=== PATIENT | male | born 1990 | race Caucasian/White ===

== ENCOUNTER 2017-10-21 14:43 | Emergency (ER) | payer SELFPAY ==
[2017-10-21 16:26] VITALS: BP 108/61
== END 2017-10-21 17:16 | disposition left against medical advice (07) ==
LOC: ED 14:43
DX: R10.84 Generalized abdominal pain (principal); Z53.21 Procedure and treatment not carried out due to patient leaving prior to being seen by health care provider

== ENCOUNTER 2017-10-24 02:41 | Emergency (ER) | payer SELFPAY ==
[2017-10-24 04:06] LABS: ABS Basophils 0.1 10^3/ul (0-0.2); ABS Eosinophils 0.1 10^3/ul (0-0.6); ABS Lymphocytes 1.7 10^3/ul (1.0-4.8); ABS Monocytes 0.5 10^3/ul (0-0.8); ABS Neutrophils 2.6 10^3/ul (1.5-7.7); ABS Nucleated RBC 0 10^3/ul; Eosinophil % 2.9 % (0-6); Hematocrit 42 % (42-52); Hemoglobin 14.4 g/dl (14.0-18.0); Lymphocyte % 33.8 % (25-47); Mean Corpuscular HGB Conc 34 g/dl (31-36); Mean Corpuscular Hemoglobin 31 pg (27-31); Mean Corpuscular Volume 91 fL (80-94); Nucleated Red Blood Cells % 0.1; Platelet Count 153 10^3/ul (150-450); Red Blood Count 4.65 10^6/ul (4.0-5.4); Red Cell Distribution Width 13 % (10.5-15); White Blood Count 5.1 10^3/ul (3.5-10.8)
[2017-10-24 04:22] LABS: EGFR Non-African American 97.4 (>60)
[2017-10-24] MEDS ORDERED: Ketorolac INJ* 60 MG/2 ML VIAL IM ONE (07:26)
[2017-10-24] MEDS ORDERED: NS 0.9% 1000 ML* 1,000 ML IV ONE (08:36)
[2017-10-24 09:18] LABS: Urine Appearance Clear; Urine Blood Negative (Negative); Urine Color Yellow; Urine Ketones Negative (Negative); Urine Protein Negative (Negative); Urine Specific Gravity 1.025 (1.010-1.030); Urine Urobilinogen Negative (Negative)
--- NOTE | 2017-10-24 09:29 | RAD ---
Indication: Left flank pain, upper quadrant pain. CT of the abdomen and pelvis was performed without oral or IV contrast. Coronal and sagittal reconstructed images were obtained. The lung bases demonstrate no pleural fluid, nodules or masses. Heart is of normal size without evidence of pericardial effusion. Liver is normal in size. No focal lesions or intrahepatic ductal dilatation is noted. The gallbladder is partially contracted. The spleen is normal in size. No adrenal lesions are noted. The kidneys demonstrate no hydronephrosis. No asymmetry of size is noted. Aorta and inferior vena cava are unremarkable. No retroperitoneal lymphadenopathy is noted. CT of the pelvis demonstrates no retroperitoneal or pelvic lymphadenopathy. There is contrast or calcification in the appendix but does not appear to be dilated. The urinary bladder is unremarkable. The prostate and seminal vesicles are unremarkable. No hernias are noted. The colon is filled with stool. IMPRESSION: No evidence of obstructive uropathy is noted. Colon is filled with stool. No dilated loops of bowel are noted. Appendix is normal caliber with high density material which may represent contrast calcifications. The spleen is not enlarged with no evidence of perisplenic fluid.
--- NOTE | 2017-10-24 10:17 | RAD ---
Indication: Chest pain. 2 views of the chest including dual energy PA views demonstrates no mediastinal shift. Heart is of normal size and configuration. Lung jimenez appear clear. IMPRESSION: No active cardiopulmonary disease is noted.
[2017-10-24] MEDS ORDERED: Omeprazole CAP* 20 MG PO ONE (10:57)
--- NOTE | 2017-10-24 11:04 | ED ---
Josh Liu Jennifer, scribed for Earnest Mata MD on 10/24/17 at 0833 . Progress - Progress Note Progress Note: The patient is a sign out from Dr. Champion pending troponin levels. The patient is a 26 year old male who presents with LUQ abdominal pain and left flank pain for one week. The patient reports the pain worsens with deep breaths , movement, twisting and turning, and eating. He denies fevers, chills, shortness of breath, sputum production, and issues with urinating or bowel movement. Recently, he was told he had a UTI but didn't have insurance so he did not receive a course of antibiotic treatment. EKG at 07:43. Sinus bradycardia at @ [address] elevation probably normal early repolarization pattern. No ectopy. No significant change from EKG today at 03:42 , 10/24/2017. CT Abd/Pel. Interpreted by a radiologist. IMPRESSION: No evidence of obstructive uropathy is noted. Colon is filled with stool. No dilated loops of bowel are noted. Appendix is normal caliber with high density material which may represent contrast calcifications. The spleen is not enlarged with no evidence of perisplenic fluid. Dr. Mata has reviewed this report. CXR. Interpreted by a radiologist. IMPRESSION: No active cardiopulmonary disease. Dr. Mata has reviewed this report. Course/Dx - Course Course Of Treatment: DISCUSSED RESULTS WITH THE PATIENT. HE RELATES WORSENING GERD AND HAS BEEN TAKING IBUPROFEN FOR THE PAIN. DISCUSSED STOPPING THE IBUPROFEN AND TREATING THE GERD. F/U PMD; RETURN IF WORSE. Discharge - Sign-Out/Discharge Documenting (check all that apply): Discharge - Discharge Plan Condition: Stable Disposition: HOME Prescriptions: Albuterol HFA INHALER* [Ventolin HFA Inhaler*] 2 puff INH Q4H PRN #1 mdi PRN Reason: Wheezing Omeprazole CAP* [Prilosec CAP* 20 MG] 20 mg PO BID #30 cap. Sucralfate TAB* [Carafate*] 1 gm PO QID #60 tab Patient Education Materials: Asthma (ED), Gastroesophageal Reflux Disease (ED) , Acute Abdominal Pain (ED) Referrals: [facility] [place] [facility]ERR[facility] [Outside] Additional Instructions: FOLLOW UP WITH YOUR DOCTOR. STOP TAKING IBUPROFEN IT MAY BE WORSENING YOUR GERD. RETURN TO THE EMERGENCY DEPARTMENT FOR ANY WORSENING OF YOUR CONDITION; PAIN, FEVER, SHORTNESS OF BREATH, BLOOD IN YOU STOOL OR EMESIS OR QUESTIONS OR CONCERNS. - Billing Disposition and Condition Condition: STABLE Disposition: HOME The documentation as recorded by the Josh mims Jennifer accurately reflects the service I personally performed and the decisions made by me, Earnest Mata MD.
[2017-10-24 11:07] VITALS: BP 105/66
--- NOTE | 2017-10-24 22:16 | ED ---
Ludmila Liu Nilda, scribed for Prosper Champion MD on 10/24/17 at 0334 . Abdominal Pain/Male - HPI Summary HPI Summary: This patient is a 26 year old M presenting to [facility] with a chief complaint of constant non-radiating LUQ pain under left ribs for approximately 1 week. The patient rates the pain 8/10 in severity. Symptoms aggravated by exertion, movement, and deep inspiration. Symptoms alleviated by nothing. Patient reports cough and right ear pain. Patient denies recent travel. Pt states he smokes 1 pack cigarettes every 3 days. Pt admits to using marijuana (last used yesterday) . No PMHx DM, HLD, HTN, DVT, and PE. Pt states father had NH at 41 y/o. - History of Current Complaint Chief Complaint: EDAbdPain Stated Complaint: ABD PAIN Time Seen by Provider: 10/24/17 03:13 Hx Obtained From: Patient Onset/Duration: Sudden Onset, Lasting Weeks, Still Present Timing: Constant Severity Currently: Severe Pain Intensity: 8 Pain Scale Used: 0-10 Numeric Location: Discrete At: LUQ Radiates: No Aggravating Factor(s): Movement, Deep Breaths, Other: - exertion Alleviating Factor(s): Nothing Associated Signs And Symptoms: Positive: Other - cough, right ear pain - Allergies/Home Medications Allergies/Adverse Reactions: Allergies Allergy/AdvReac Type Severity Reaction Status Date / Time No Known Allergies Allergy Verified 10/24/17 03:31 Home Medications: Home Medications Albuterol HFA INHALER* 1 inh INH Q4HR PRN 10/24/17 [History Confirmed 10/24/17] PMH/Surg Hx/FS Hx/Imm Hx Endocrine/Hematology History: Denies: Hx Diabetes Cardiovascular History: Denies: Hx Deep Vein Thrombosis, Hx Hypercholesterolemia, Hx Hypertension Respiratory History: Denies: Hx Pulmonary Embolism Infectious Disease History: No Infectious Disease History: Denies: Traveled Outside the [place] in Last 30 Days - Family History Known Family History: Positive: Cardiac Disease - [place] father at 41 y/o - Social History Occupation: Employed Full-time Alcohol Use: None Hx Substance Use: Yes Substance Use Type: Reports: Marijuana Smoking Status (MU): Current Every Day Smoker Review of Systems Positive: Ear Ache - right Positive: Cough Positive: Abdominal Pain - LUQ All Other Systems Reviewed And Are Negative: Yes Physical Exam - Summary Physical Exam Summary: GENERAL: Patient is a well developed and nourished M who is lying comfortable in the stretcher. Patient is not in any acute respiratory distress. HEAD AND FACE: Normocephalic EYES: PERRLA, EOMI x 2. EARS: Hearing grossly intact. TMs clear bilat MOUTH: Oropharynx within normal limits. NECK: Supple, trachea is midline, no adenopathy, no JVD, no carotid bruit. CHEST: Symmetric, no tenderness at palpation LUNGS: Clear to auscultation bilaterally. No wheezing or crackles. CVS: Regular rate and rhythm, S1 and S2 present, no murmurs or gallops appreciated. ABDOMEN: Soft, non-tender. Bowel sounds are normal. No abdominal abnormal pulsations. EXTREMITIES: Full ROM in all major joints, no edema, no cyanosis or clubbing. NEURO: Alert and oriented x 3. No acute neurological deficits. Speech is normal and follows commands. SKIN: Dry and warm Triage Information Reviewed: Yes Vital Signs On Initial Exam: Initial Vitals Temp Pulse Resp BP Pulse Ox 98.3 F 73 16 119/77 96 10/24/17 02:43 10/24/17 02:43 10/24/17 02:43 10/24/17 02:43 10/24/17 02:43 Vital Signs Reviewed: Yes Diagnostics - Vital Signs Vital Signs Temp Pulse Resp BP Pulse Ox 10/24/17 02:43 98.3 F 73 16 119/77 96 - Laboratory Lab Results: Lab Results 10/24/17 10/24/17 10/24/17 Range/Units 03:55 03:55 03:55 WBC 5.1 (3.5-10.8) 10^3/ul RBC 4.65 (4.0-5.4) 10^6/ul Hgb 14.4 (14.0-18.0) g/dl Hct 42 (42-52) % MCV 91 (80-94) fL MCH 31 (27-31) pg MCHC 34 (31-36) g/dl RDW 13 (10.5-15) % Plt Count 153 (150-450) 10^3/ul MPV 10.0 (7.4-10.4) um3 Neut % (Auto) 51.7 (38-83) % Lymph % (Auto) 33.8 (25-47) % [place]ham % (Auto) 10.5 H (0-7) % Eos % (Auto) 2.9 (0-6) % Baso % (Auto) 1.1 (0-2) % Absolute Neuts (auto) 2.6 (1.5-7.7) 10^3/ul Absolute Lymphs (auto) 1.7 (1.0-4.8) 10^3/ul Absolute Monos (auto) 0.5 (0-0.8) 10^3/ul Absolute Eos (auto) 0.1 (0-0.6) 10^3/ul Absolute Basos (auto) 0.1 (0-0.2) 10^3/ul Absolute Nucleated RBC 0 10^3/ul Nucleated RBC % 0.1 D-Dimer, Quantitative < 200 (Less Than 230) ng/mL Sodium 137 L (139-145) mmol/L Potassium 3.4 L (3.5-5.0) mmol/L Chloride 104 (101-111) mmol/L Carbon Dioxide 27 (22-32) mmol/L Anion Gap 6 (2-11) mmol/L BUN 18 (6-24) mg/dL Creatinine 0.95 (0.67-1.17) mg/dL Est GFR ( Amer) 125.3 (>60) Est GFR (Non-Af Amer) 97.4 (>60) BUN/Creatinine Ratio 18.9 (8-20) Glucose 110 H (70-100) mg/dL Calcium 9.3 (8.6-10.3) mg/dL Total Bilirubin 0.30 (0.2-1.0) mg/dL AST 20 (13-39) U/L ALT 21 (7-52) U/L Alkaline Phosphatase 64 (34-104) U/L Troponin I 0.00 (<0.04) ng/mL Total Protein 6.5 (6.4-8.9) g/dL Albumin 4.1 (3.2-5.2) g/dL Globulin 2.4 (2-4) g/dL Albumin/Globulin Ratio 1.7 (1-3) Lipase (11.0-82.0) U/L Urine Color Urine Appearance Urine pH (5-9) Ur Specific Hardy (1.010-1.030) Urine Protein (Negative) Urine Ketones (Negative) Urine Blood (Negative) Urine Nitrate (Negative) Urine Bilirubin (Negative) Urine Urobilinogen (Negative) Ur Leukocyte Esterase (Negative) Urine Glucose (Negative) 10/24/17 10/24/17 Range/Units 08:26 09:07 WBC (3.5-10.8) 10^3/ul RBC (4.0-5.4) 10^6/ul Hgb (14.0-18.0) g/dl Hct (42-52) % MCV (80-94) fL MCH (27-31) pg MCHC (31-36) g/dl RDW (10.5-15) % Plt Count (150-450) 10^3/ul MPV (7.4-10.4) um3 Neut % (Auto) (38-83) % Lymph % (Auto) (25-47) % Oldham % (Auto) (0-7) % Eos % (Auto) (0-6) % Baso % (Auto) (0-2) % Absolute Neuts (auto) (1.5-7.7) 10^3/ul Absolute Lymphs (auto) (1.0-4.8) 10^3/ul Absolute Monos (auto) (0-0.8) 10^3/ul Absolute Eos (auto) (0-0.6) 10^3/ul Absolute Basos (auto) (0-0.2) 10^3/ul Absolute Nucleated RBC 10^3/ul Nucleated RBC % D-Dimer, Quantitative (Less Than 230) ng/mL Sodium (139-145) mmol/L Potassium (3.5-5.0) mmol/L Chloride (101-111) mmol/L Carbon Dioxide (22-32) mmol/L Anion Gap (2-11) mmol/L BUN (6-24) mg/dL Creatinine (0.67-1.17) mg/dL Est GFR ( Amer) (>60) Est GFR (Non-Af Amer) (>60) BUN/Creatinine Ratio (8-20) Glucose (70-100) mg/dL Calcium (8.6-10.3) mg/dL Total Bilirubin (0.2-1.0) mg/dL AST (13-39) U/L ALT (7-52) U/L Alkaline Phosphatase (34-104) U/L Troponin I 0.00 (<0.04) ng/mL Total Protein (6.4-8.9) g/dL Albumin (3.2-5.2) g/dL Globulin (2-4) g/dL Albumin/Globulin Ratio (1-3) Lipase 27 (11.0-82.0) U/L Urine Color Yellow Urine Appearance Clear Urine pH 6.0 (5-9) Ur Specific Hardy 1.025 (1.010-1.030) Urine Protein Negative (Negative) Urine Ketones Negative (Negative) Urine Blood Negative (Negative) Urine Nitrate Negative (Negative) Urine Bilirubin Negative (Negative) Urine Urobilinogen Negative (Negative) Ur Leukocyte Esterase Negative (Negative) Urine Glucose Negative (Negative) Result Diagrams: 10/24/17 03:55 10/24/17 03:55 Lab Statement: Any lab studies that have been ordered have been reviewed, and results considered in the medical decision making process. - Radiology CXR Radiology Interpretation Completed By: ED Physician - No PNA. - EKG 0440 Cardiac Rate: Bradycardia - 59 bpm EKG Rhythm: Sinus Bradycardia EKG Interpretation: minimal ST elevation, benign early repolarization Re-Evaluation - Re-Evaluation First Eval Re-Evaluation Time: 07:23 Comment: Reviewed results and imaging with pt. Abdominal Pain Fem Course/Dx - Diagnoses Provider Diagnoses: Rib pain on left side Discharge - Sign-Out/Discharge Documenting (check all that apply): Sign-Out Patient Signing out patient TO: Earnest Mata - pending dispo, awaiting trop - Discharge Plan Condition: Stable Disposition: HOME Prescriptions: Albuterol HFA INHALER* [Ventolin HFA Inhaler*] 2 puff INH Q4H PRN #1 mdi PRN Reason: Wheezing Omeprazole CAP* [Prilosec CAP* 20 MG] 20 mg PO BID #30 cap. Sucralfate TAB* [Carafate*] 1 gm PO QID #60 tab Patient Education Materials: Asthma (ED), Gastroesophageal Reflux Disease (ED) , Acute Abdominal Pain (ED) Referrals: [facility] – [place] [facility] REFERRAL [Outside] Additional Instructions: FOLLOW UP WITH YOUR DOCTOR. STOP TAKING IBUPROFEN IT MAY BE WORSENING YOUR GERD. RETURN TO THE EMERGENCY DEPARTMENT FOR ANY WORSENING OF YOUR CONDITION; PAIN, FEVER, SHORTNESS OF BREATH, BLOOD IN YOU STOOL OR EMESIS OR QUESTIONS OR CONCERNS. The documentation as recorded by the Ludmila mims Nilda accurately reflects the service I personally performed and the decisions made by me, Prosper Champion MD.
== END 2017-10-24 11:13 | disposition home or self-care (01) ==
LOC: ED 02:41
DX: R07.81 Pleurodynia (principal); R00.1 Bradycardia, unspecified; R10.12 Left upper quadrant pain; R05 Cough; H92.01 Otalgia, right ear; F17.210 Nicotine dependence, cigarettes, uncomplicated
CPT/HCPCS: 36415; 71046; 74176; 80053; 81003; 83690; 84484; 85025; 85379; 93005; 96372; 99283; A9270-GY; J1885

== ENCOUNTER 2017-12-26 09:40 | Emergency (ER) | payer SELFPAY ==
[2017-12-26 09:49] VITALS: BP 103/66
--- NOTE | 2017-12-26 11:43 | UC ---
Jass Liu Rebecca, scribed for John Jones MD on 12/26/17 at 1007 . Throat Pain/Nasal Kenji HPI - HPI Summary HPI Summary: Pt is a 27 y/o M who presents to [facility] c/o bilateral ear pain with radiation down the throat for 1 week. On triage, pain is severe, ranked 8-9/10 and characterized as an ache. Yesterday, the pain was worse in the right ear and today it is worse in the left. Has been treating with Tylenol, Ibuprofen and Benadryl which alleviates sx temporarily, last taken at 0830. Sx aggravated by PO intake and swallowing. Additionally c/o CRUZ characterized as migraine, cervical lymphadenopathy and chills. Denies fever, CP, SOB, N/V, abdominal pain , constipation. Prior similar episodes 3 times this year. No sick contacts and no recent travel. PMHx [place]. - History of Current Complaint Chief Complaint: UCGeneralIllness Stated Complaint: EAR ACHE, AND SORE THROAT Time Seen by Provider: 12/26/17 09:53 Hx Obtained From: Patient Onset/Duration: Lasting Weeks - 1 week, Still Present Severity: Severe Pain Intensity: 9 Pain Scale Used: 0-10 Numeric Cough: None Associated Signs & Symptoms: Positive: Other - Bilateral ear pain. Negative: Fever Related History: Other (Noted In Comments) - Prior similar episodes - Allergies/Home Medications Allergies/Adverse Reactions: Allergies Allergy/AdvReac Type Severity Reaction Status Date / Time No Known Allergies Allergy Verified 12/26/17 09:49 PMH/Surg Hx/FS Hx/Imm Hx - Additional Past Medical History Additional PMH: PMHx: [place] Previously Healthy: Yes Endocrine History: Other Other Endocrine History: NEGATIVE: DM Cardiovascular History: Other Other Cardiovascular History: NEGATIVE: HTN Other Respiratory History: negative Other GI/ History: negative Other Neurological History: negative - Surgical History Surgical History: None - Family History Known Family History: Positive: Cardiac Disease - [place] father at 41 y/o - Social History Lives: With Family Alcohol Use: None Substance Use Type: Marijuana Substance Use Comment - Amount & Last Used: infrequently, smoked 4/20 Smoking Status (MU): Current Every Day Smoker Review of Systems Constitutional: Chills Skin: Negative Eyes: Negative ENT: Sore Throat, Ear Ache - Bilateral with radiation down throat, Other - Lymphadenopathy Respiratory: Negative Cardiovascular: Negative Gastrointestinal: Negative Genitourinary: Negative Motor: Negative Neurovascular: Negative Musculoskeletal: Negative Neurological: Headache - migraine Psychological: Negative Is Patient Immunocompromised?: No All Other Systems Reviewed And Are Negative: Yes - Comments Additional Review of Systems Comments: NEGATIVE: Fever, CP, SOB, N/V, abdominal pain, constipation Physical Exam Triage Information Reviewed: Yes Appearance: Ill-Appearing, Pain Distress Vital Signs: Initial Vital Signs Temp 98.5 F 12/26/17 09:43 Pulse 79 12/26/17 09:43 Resp 16 12/26/17 09:43 BP 103/66 12/26/17 09:43 Pulse Ox 99 12/26/17 09:43 Vital Signs Reviewed: Yes Eye Exam: Normal Eyes: Positive: Conjunctiva Clear ENT: Positive: Pharyngeal erythema, TM red - right TM red and bulging, Tonsillar swelling, Tonsillar exudate. Negative: Nasal drainage, Muffled voice , Hoarse voice Neck exam: Normal Neck: Positive: Supple, Other: - enlarged and tender anterior cervical lymphadenopathy. Negative: No Lymphadenopathy Respiratory Exam: Normal Respiratory: Positive: Chest non-tender, Lungs clear, Normal breath sounds, No respiratory distress. Negative: Crackles, Rhonchi, Stridor, Wheezing Cardiovascular Exam: Normal Cardiovascular: Positive: RRR, No Murmur, Pulses Normal Abdominal Exam: Normal Abdomen Description: Positive: Nontender, No Organomegaly, Soft Bowel Sounds: Positive: Present Musculoskeletal Exam: Normal Neurological Exam: Normal Neurological: Positive: Alert Psychological: Positive: Age Appropriate Behavior Skin Exam: Normal Skin: Negative: rashes Throat Pain/Nasal Course/Dx - Course Course Of Treatment: During the visit today, we obtained rapid strep test which was negative. . We discussed the findings or otitis media and further plan. I will prescribe the medication to the pharmacy . Advised him that if he has mono, he can develop a rash and needs to stop the amoxicillin. Obtained monospot test . Patient expressed understanding. I will prescribe the albuterol for his exercise induced asthma. - Differential Dx/Diagnosis Differential Diagnosis/HQI/PQRI: Mononucleosis, Pharyngitis, Sinusitis, Tonsillitis, URI Provider Diagnoses: Right otitis media and pharyngitis. Discharge - Sign-Out/Discharge Documenting (check all that apply): Discharge/Admit/Transfer - Discharge - Discharge Plan Condition: Stable Disposition: HOME Prescriptions: Albuterol HFA INHALER* [Ventolin HFA Inhaler*] 1 puff INH Q4H PRN #1 mdi PRN Reason: Shortness Of Breath Amoxicillin PO (*) [Amoxicillin 500 MG CAP*] 500 mg PO Q12H 10 Days #20 cap Patient Education Materials: Mononucleosis (ED), Pharyngitis (ED) Referrals: [facility] [place] [facility] REFERRAL [Outside] - 1 Week Additional Instructions: Start taking antibiotic. Stop if you develop a rash. It has been prescribed to the pharmacy. Your rapid strep test was negative today and mononucleosis test was done. Follow up with primary care doctor in 1 week. Return to Urgent care / ER if symptoms get worse. - Billing Disposition and Condition Condition: STABLE Disposition: Home The documentation as recorded by the Jass mims Rebecca accurately reflects the service I personally performed and the decisions made by me, John Jones MD.
== END 2017-12-26 11:16 | disposition home or self-care (01) ==
LOC: UCEAST 09:40
DX: H66.91 Otitis media, unspecified, right ear (principal); J02.9 Acute pharyngitis, unspecified; Z82.49 Family history of ischemic heart disease and other diseases of the circulatory system; F17.200 Nicotine dependence, unspecified, uncomplicated
CPT/HCPCS: 87651; 99212; G0463

== ENCOUNTER 2018-03-24 10:36 | Emergency (ER) | payer SELFPAY ==
[2018-03-24] MEDS ORDERED: Albuterol/Ipratropium NEB.SOL* Albuterol 2.5 MG/Ipratropium 0.5 MG 3 ML INH ONE (11:31)
--- NOTE | 2018-03-24 12:21 | RAD ---
INDICATION: Cough. COMPARISON: Comparison is made with a prior study from October 24, 2017. TECHNIQUE: Dual-energy PA and lateral views of the chest were obtained. FINDINGS: The heart is within normal limits in size. Mediastinal and hilar contours appear within normal limits. The lungs are clear. No pleural effusion is present. IMPRESSION: NO EVIDENCE FOR ACTIVE CARDIOPULMONARY DISEASE.
[2018-03-24 13:39] VITALS: BP 130/59
--- NOTE | 2018-03-26 13:44 | ED ---
Respiratory - History of Current Complaint Chief Complaint: EDUpperRespComplaint Stated Complaint: COUGH Time Seen by Provider: 03/24/18 11:18 Hx Obtained From: Patient Pain Intensity: 0 - Allergy/Home Medications Allergies/Adverse Reactions: Allergies Allergy/AdvReac Type Severity Reaction Status Date / Time No Known Allergies Allergy Verified 12/26/17 09:49 Home Medications: Home Medications Acetaminophen TAB* [Tylenol TAB*] 650 mg PO Q6H PRN 03/24/18 [History Confirmed 03/24/18] PMH/Surg Hx/FS Hx/Imm Hx Previously Healthy: Yes Endocrine/Hematology History: Denies: Hx Diabetes Cardiovascular History: Denies: Hx Deep Vein Thrombosis, Hx Hypercholesterolemia, Hx Hypertension Respiratory History: Reports: Hx Asthma - DAILY MEDS Denies: Hx Pulmonary Embolism - Immunization History Date of Tetanus Vaccine: unk Date of Influenza Vaccine: none Infectious Disease History: No Infectious Disease History: Denies: Traveled Outside the [place] in Last 30 Days - Family History Known Family History: Positive: Cardiac Disease - [place] father at 41 y/o - Social History Occupation: Employed Full-time Lives: With Family Alcohol Use: None Hx Substance Use: Yes Substance Use Type: Reports: Marijuana Substance Use Comment - Amount & Last Used: infrequently, smoked 10/23 Hx Tobacco Use: Yes Smoking Status (MU): Current Every Day Smoker Review of Systems Constitutional: Negative Eyes: Negative Positive: Sore Throat, Ear Ache, Nasal Discharge Cardiovascular: Negative Positive: Shortness Of Breath, Cough Gastrointestinal: Negative Genitourinary: Negative Musculoskeletal: Negative Skin: Negative Neurological: Negative All Other Systems Reviewed And Are Negative: Yes Physical Exam Triage Information Reviewed: Yes Vital Signs On Initial Exam: Initial Vitals Temp Pulse Resp BP Pulse Ox 98.7 F 80 15 115/68 98 03/24/18 10:51 03/24/18 10:51 03/24/18 10:51 03/24/18 10:51 03/24/18 10:51 Vital Signs Reviewed: Yes Appearance: Positive: Well-Appearing - Pt. sitting in chair in NAD. Breathing easily on RA> Skin: Positive: Warm, Dry Head/Face: Positive: Normal Head/Face Inspection Eyes: Positive: Normal, EOMI, Conjunctiva Clear ENT: Positive: Pharynx normal, Other - Bilateral TMs are erythematous and bulging. No drainage. Neck: Positive: Supple, Nontender Respiratory/Lung Sounds: Positive: Other - Diffuse inspiratory and expiratory wheezing noted throughout. No stidor, accessory muscle use or retractions. Cardiovascular: Positive: Normal, RRR Neurological: Positive: Normal, CN Intact II-III Psychiatric: Positive: Affect/Mood Appropriate Diagnostics - Vital Signs Vital Signs Temp Pulse Resp BP Pulse Ox 03/24/18 13:36 97.8 F 86 15 130/59 97 03/24/18 10:51 98.7 F 80 15 115/68 98 - Laboratory Lab Statement: Any lab studies that have been ordered have been reviewed, and results considered in the medical decision making process. Disposition - Course Course Of Treatment: Pt. presenting with bilataral recurrent otitis media and bronchospasm. Overall he is well appearing and nontoxic. O2 saturation is 98% on RA which is normal. CXR obtained given productive cough and wheeze. CXR is negative for acute findings, per radiology. Pt. given duoneb treatment. On re- auscultation wheezing has resolved and pt. is feeling better. Given he was just treated with augmentin for otitis media barely a month ago, will treat with omnicef. To schedule close f.u with PCP and possible referral to ENT for recurrent OM. To use inhaler 2 puffs q 4-6 hours. Short course of prednisone also rx. Tylenol or motrin as directed. To return to ER if sxs change or worsen. - Differential Dx - Cardiopulmonary Differential Diagnoses - Cardiopulmonary: Asthma, Lower Resp Infection, Sinusitis - Diagnoses Provider Diagnoses: Otitis media, Bronchospasm Discharge - Sign-Out/Discharge Documenting (check all that apply): Patient Departure - Discharge Plan Condition: Good Disposition: HOME Prescriptions: Cefdinir [Cefdinir 300 MG CAP] 300 mg PO Q12H #20 capsule predniSONE TAB* [Deltasone 20 MG TAB*] 40 mg PO DAILY #10 tab Patient Education Materials: Ear Infection (ED), Bronchospasm (ED) Forms: *Work Release Referrals: [facility] [Outside] No Primary Care Phys,NOPCP [Primary Care Provider] - Additional Instructions: Schedule a follow up appointment with the [facility] for follow up and referral to ENT Take medication as directed Tylenol or Motrin for pain as directed Continue inhaler as directed Return to ER If symptoms change or worsen - Billing Disposition and Condition Condition: GOOD Disposition: Home
== END 2018-03-24 13:39 | disposition home or self-care (01) ==
LOC: ED 10:36
DX: H66.93 Otitis media, unspecified, bilateral (principal); J98.01 Acute bronchospasm; R06.02 Shortness of breath; R05 Cough; F17.210 Nicotine dependence, cigarettes, uncomplicated
CPT/HCPCS: 71046; 99281; A9270-GY

== ENCOUNTER 2018-07-02 14:35 | Emergency (ER) | payer SELFPAY ==
[2018-07-02] MEDS ORDERED: Ketorolac INJ* 60 MG/2 ML VIAL IM ONE (17:32)
[2018-07-02] MEDS ORDERED: traMADol TAB* 50 MG PO ONE (17:32)
--- NOTE | 2018-07-02 18:20 | ED ---
Back Pain - HPI Summary HPI Summary: A 27 y/o male presents to the ED c/o back pain due to incident. According to the patient, he was spending the night at his mothers house when he put two chairs together in order to sleep on them. He stated that the chairs together were not flat, instead they reclined opposite ways. In the middle of the night when he was sleeping on both of them, the chair that was holding his legs fell off and he fell too. Then the chair that was holding the rest of his body fell as the other chair fell. He stated that it hurt quite a bit. He stated that it has been about 2 weeks since and it has been affecting his sleep. He still has back pain where the chair hit him. He is not having any issues ambulating. Patient states that it is worse with movement. The pain does hurt with deep breaths. He denies any urinary issues or gastrointestinal issues, and numbness/ tingling down his legs. He stated that he has been taking 500 mg of acetaminophen and 400 mg of ibuprofen, as it helps it hurt not all the time. - History of Current Complaint Chief Complaint: EDBackInjuryPain Stated Complaint: RT SIDE BACK PAIN Time Seen by Provider: 07/02/18 17:25 Hx Obtained From: Patient Onset/Duration: Sudden Onset, Lasting Weeks, Still Present Onset/Duration: Started Weeks Ago, Still Present Timing: Constant Back Pain Location: Is Discrete @ - BACK Severity Initially: Severe Severity Currently: Severe Pain Intensity: 8 Pain Scale Used: 0-10 Numeric Aggravating Symptom(s): Movement Alleviating Symptom(s): Nothing Associated Signs And Symptoms: Positive: Negative - Allergies/Home Medications Allergies/Adverse Reactions: Allergies Allergy/AdvReac Type Severity Reaction Status Date / Time No Known Allergies Allergy Verified 07/02/18 14:55 PMH/Surg Hx/FS Hx/Imm Hx Endocrine/Hematology History: Denies: Hx Diabetes Cardiovascular History: Denies: Hx Deep Vein Thrombosis, Hx Hypercholesterolemia, Hx Hypertension Respiratory History: Reports: Hx Asthma - DAILY MEDS Denies: Hx Pulmonary Embolism - Surgical History Surgery Procedure, Year, and Place: PER PATIENT, NO PRIOR SURGERIES. - Immunization History Date of Tetanus Vaccine: unk Date of Influenza Vaccine: none Infectious Disease History: No Infectious Disease History: Denies: Traveled Outside the [place] in Last 30 Days - Family History Known Family History: Positive: Cardiac Disease - [facility] father at 41 y/o - Social History Alcohol Use: None Hx Substance Use: Yes Substance Use Type: Reports: Marijuana Substance Use Comment - Amount & Last Used: may 2018 Hx Tobacco Use: Yes Smoking Status (MU): Current Every Day Smoker Review of Systems Negative: Fever, Chills Negative: Erythema Negative: Sore Throat Negative: Chest Pain Negative: Shortness Of Breath, Cough Negative: Abdominal Pain, Vomiting, Nausea Negative: dysuria, hematuria Positive: Other - POSITIVE: BACK PAIN. Negative: Myalgia, Edema Negative: Rash Neurological: Other - NEGATIVE: DIZZINESS All Other Systems Reviewed And Are Negative: Yes Physical Exam - Summary Physical Exam Summary: Constitutional: Well-developed, Well-nourished, Alert. (-) Distressed Skin: Warm, Dry HENT: Normocephalic; Atraumatic Eyes: Conjunctiva normal Neck: Musculoskeletal ROM normal neck. (-) JVD, (-) Stridor, (-) Tracheal deviation Cardio: Rhythm regular, rate normal, Heart sounds normal; Intact distal pulses; The pedal pulses are 2+ and symmetric. Radial pulses are 2+ and symmetric. (-) Murmur Pulmonary/Chest wall: Effort normal. (-) Respiratory distress, (-) Wheezes, (-) Rales Abd: Soft, (-) epigastric tenderness, (-) Distension, (-) Guarding, (-) Rebound Musculoskeletal: (-) Edema, tenderness over the right 10th posterior rib Lymph: (-) Cervical adenopathy Neuro: Alert, Oriented x3 Psych: Mood and affect Normal Triage Information Reviewed: Yes Vital Signs On Initial Exam: Initial Vitals Temp Pulse Resp BP Pulse Ox 98.8 F 91 20 118/60 99 07/02/18 14:53 07/02/18 14:53 07/02/18 14:53 07/02/18 14:53 07/02/18 14:53 Vital Signs Reviewed: Yes Diagnostics - Vital Signs Vital Signs Temp Pulse Resp BP Pulse Ox 07/02/18 14:53 98.8 F 91 20 118/60 99 - Laboratory Lab Statement: Any lab studies that have been ordered have been reviewed, and results considered in the medical decision making process. - Radiology THORACIC XR Radiology Interpretation Completed By: ED Physician Summary of Radiographic Findings: NO ACUTE DISEASE. PENDING OFFICIAL REPORT. CHEST WITH RIBS XR Radiology Interpretation Completed By: ED Physician Summary of Radiographic Findings: NO ACUTE DISEASE. PENDING OFFICIAL REPORT. LUMBAR XR Radiology Interpretation Completed By: ED Physician Summary of Radiographic Findings: NO ACUTE DISEASE. PENDING OFFICIAL REPORT. Back Pain Course/Dx - Course Course Of Treatment: A 27 y/o male presents to the ED c/o back pain due to incident. According to the patient, he was spending the night at his mothers house when he put two chairs together in order to sleep on them. He stated that the chairs together were not flat, instead they reclined opposite ways. In the middle of the night when he was sleeping on both of them, the chair that was holding his legs fell off and he fell too. Then the chair that was holding the rest of his body fell as the other chair fell. He stated that it hurt quite a bit. He stated that it has been about 2 weeks since and it has been affecting his sleep. He still has back pain where the chair hit him. He is not having any issues ambulating. Patient states that it is worse with movement. The pain does hurt with deep breaths. He denies any urinary issues or gastrointestinal issues , and numbness/tingling down his legs. He stated that he has been taking 500 mg of acetaminophen and 400 mg of ibuprofen, as it helps it hurt not all the time. Physical examination revealed tenderness over the right 10th posterior rib. A CXR with ribs revealed no acute disease. A Thoracic XR revealed no acute disease. A Lumbar XR revealed no acute disease. No laboratory screens were done. In the ED course, the patient received Toradol and Ultram. Patient will be discharged with a diagnosis of contusions.Patient is to follow up with primary care provider and [facility] in 2-3 days. Patient is to return to ED for any new or worsening symptoms. Patient is agreeable with this plan. - Diagnoses Provider Diagnoses: Contusion Discharge - Sign-Out/Discharge Documenting (check all that apply): Patient Departure - DISCHARGE - Discharge Plan Condition: Stable Disposition: HOME Prescriptions: Naproxen TAB* [Naprosyn 250 mg TAB*] 500 mg PO Q8H PRN #15 tab PRN Reason: Pain - Moderate To Severe traMADol TAB* [Ultram*] 50 mg PO BEDTIME PRN #5 tab MDD 5 PRN Reason: Pain Scale 6-10 Patient Education Materials: Contusion in Adults (ED), Back Pain (ED) Referrals: [facility] [Outside] - 3 Days Additional Instructions: FOLLOW UP WITH PRIMARY CARE PROVIDER IN 2-3 DAYS. FOLLOW UP WITH [facility] IN 2-3 DAYS. RETURN TO ED FOR ANY NEW OR WORSENING SYMPTOMS. - Attestation Statements Document Initiated by Scribe: Yes Documenting Scribe: Charles Perez Provider For Whom Scribe is Documenting (Include Credential): Alek Marshall MD Scribe Attestation: Charles Liu, scribed for Alek Marshall MD on 07/02/18 at 1839. Status of Scribe Document: Ready
[2018-07-02 18:54] VITALS: BP 124/78
== END 2018-07-02 18:54 | disposition home or self-care (01) ==
LOC: ED 14:35
DX: S30.0XXA Contusion of lower back and pelvis, initial encounter (principal); M54.9 Dorsalgia, unspecified; F17.210 Nicotine dependence, cigarettes, uncomplicated; W19.XXXA Unspecified fall, initial encounter; Y92.9 Unspecified place or not applicable
CPT/HCPCS: 72070; 72110; 96372; 99282; A9270-GY; J1885

== ENCOUNTER → 2019-09-07 12:29 | Day surgery (SDC) | payer OTHER ==
[~2019-09-07 12:29] MED LIST: Acetaminophen TAB* 325 MG ONE; Acetaminophen TAB* 325 MG PO ONE; Bacitracin OINTMENT* 0.5% 0.5 oz TUBE ONE; Buffered Lidocaine 1% SYRIN* 1 ML/SYRINGE INTRADERM ONE; Dexamethasone IV* 4 MG/ML 1 ML (4 MG) ONE; HYDROmorphone INJ1* 1 MG/ML SYRINGE IV PRN; Lactated Ringers 1000 ML Bag* 1,000 ML IV SCH; Lidocaine 2% PF * 5 ML VIAL ONE; Lidocaine 2% w/ EPI 1:200,000* 20 ML SDV VIAL ONE; Midazolam* 1 MG/ML 2 ML VIAL (2 MG) ONE; Naloxone* 0.4 MG/ML 1 ML VIAL IV PRN; Ondansetron INJ* 2 MG/ML VIAL ONE; Oxymetazoline 0.05% NASAL SPR* 15 ML BTL ONE; PROCHLORPERAZINE INJ 5 MG/ML 2 ML VIAL IV PRN; Propofol* 10 MG/ML 20 ML BTL ONE; Rocuronium* 10 MG/ML VIAL ONE; Sugammadex * 200 MG/2 ML VIAL IV PUSH ONE; diPHENhydraMINE IV* 50 MG/ML 1 ml VIAL (BENADRYL) IV PRN; fentaNYL* 50 MCG/ML 5 ML VIAL (250 MCG VIAL) ONE; oxyCODONE TAB* 5 MG TAB ONE; oxyCODONE TAB* 5 MG TAB PO PRN
[2019-09-07 17:42] VITALS: BP 128/76
--- NOTE | 2019-09-08 00:43 | OP ---
OPERATIVE REPORT: DATE OF OPERATION: 09/07/19 - SDS DATE OF : 89 SURGEON: Von Esposito MD PRE-OP DIAGNOSES: Deviated nasal septum, nasal dyspnea. POST-OP DIAGNOSES: Deviated nasal septum, nasal dyspnea. OPERATIVE PROCEDURE: Septoplasty, submucosal resection of inferior turbinates. BRIEF HISTORY: This 28-year-old with nasal symptoms of obstruction with a markedly deviated septum, elected for surgical management. DESCRIPTION OF PROCEDURE: The patient was taken to the operating room, general anesthesia was given, the patient was intubated. Nose was decongested with Afrin placed pledgets. Subsequently 2% lidocaine with epinephrine was infiltrated in the mucosa of the septum on both sides and the inferior turbinates. Left hemitransfixion incision was created. Mucoperichondrial flap was elevated. Quadrangular cartilage was disarticulated along the vomer ethmoidal complex posteriorly, along the maxillary crest inferiorly. The concave surface of the cartilage was scored, placed in the midline. Multiple mattress sutures of chromic were applied. The hemitransfixion incision was closed. Paultete split was applied, secured with 2-0 silks then we turned our attention to the inferior turbinates. A small incision was made in the inferior turbinate mucosa. Submucosal elevation was carried out. Once this was done, small portions of mucosa and turbinates were removed. Cauterization of the inferior turbinate mucosa and bone was carried out for hemostasis. The patient was then awakened, extubated and sent to recovery room in stable condition. Instrument and sponge count was correct. Blood loss minimal. [id number]/[facility] #: [id number] [facility]
== END | disposition home or self-care (01) ==
LOC: OR 12:29
PROVIDERS: ATTEND Otolaryngology
DX: J34.2 Deviated nasal septum (principal); J34.3 Hypertrophy of nasal turbinates; R06.09 Other forms of dyspnea; J31.0 Chronic rhinitis; J45.909 Unspecified asthma, uncomplicated; F17.211 Nicotine dependence, cigarettes, in remission; K21.9 Gastro-esophageal reflux disease without esophagitis; M19.90 Unspecified osteoarthritis, unspecified site
CPT/HCPCS: A9270-GY; J1100; J2250; J2405; J2704; J3010